=== PATIENT | male | born 1950 | race Caucasian/White ===

== ENCOUNTER 2021-05-11 12:56 | Outpatient (CLI) | payer OTHER, SELFPAY ==
--- NOTE | 2021-05-11 13:15 | CT_ITS ---
WS: [id number] CT CHEST WITHOUT INTRAVENOUS CONTRAST HISTORY: Lung Nodule TECHNIQUE: Contiguous 5 mm axial imaging performed on the thorax. Coronal and sagittal reformats are submitted. All CT scans at [facility] use at least one of these dose optimization techniques: automated exposure control; mA and/or kV adjustment per patient size (includes targeted exams where dose is matched to clinical indication); or iterative reconstruction. CONTRAST: None DLP: 623.8 mGy.cm COMPARISON: 09/04/2020 Lungs and central airway: Mild pulmonary hyperexpansion. Small bilateral perifissural nodule's. Calci fied granuloma periphery RIGHT lower lobe. Lungs are much better aerated as compared to the prior exa mination. No discrete mass or nodule. Pleura: Normal. No pleural effusion. Heart and pericardium: Normal size heart with no pericardial effusion. Mediastinum and crissy: No significant adenopathy identified on this unenhanced examination. Vessels: Normal size aorta with very mild atherosclerosis. Normal size pulmonary artery. Chest wall and lower neck: No soft tissue masses. Upper abdomen: Moderate size hiatal hernia. Hepatic steatosis. Normal adrenal glands. Osseous structures: No destructive osseous lesions. Remote healed rib fracture in the posterior RIGHT lower thorax. CT/CT chest wo con [id number] IMPRESSION: 1. Chronic emphysema with no suspicious pulmonary mass or nodule. 2. 9 perifissural nodule's. 3. No adenopathy. 4. Small hiatal hernia.
== END 2021-05-11 12:57 | disposition home or self-care (01) ==
LOC: CT 13:03
PROVIDERS: PCP Family Medicine; Visit Provider Internal Medicine Critical Care Medicine
DX: R91.1 Solitary pulmonary nodule (principal); J43.9 Emphysema, unspecified; K44.9 Diaphragmatic hernia without obstruction or gangrene
CPT/HCPCS: 71250

== ENCOUNTER → 2022-04-26 12:11 | Outpatient (BNVA) | payer OTHER, SELFPAY | PROVIDERS: PCP Family Medicine; Visit Provider Internal Medicine Critical Care Medicine | DX: R91.8 Other nonspecific abnormal finding of lung field (principal); R06.02 Shortness of breath; Z87.891 Personal history of nicotine dependence | CPT/HCPCS: 99213 ==

== ENCOUNTER 2024-01-16 10:39 | Outpatient (CLI) | payer OTHER, SELFPAY ==
--- NOTE | 2024-01-16 11:22 | PETR_ITS ---
PROCEDURE INFORMATION: Exam: PET/CT Skull Base to Mid-thigh Exam date and time: 01/16/2024 11:14 AM Age: 73 years old Clinical indication: Abnormal findings; Lung mass; Additional info: Abnormal imaging LABS AND CLINICAL REPORTS: Glucose: 94 mg/dl Treatment strategy for malignancy (PET staging): Initial Staging (PI) TECHNIQUE: Imaging protocol: Following at least four-hour fasting and following the injection of radiopharmaceutical, low dose CT images were obtained. Then, PET images were obtained. Attenuation corrected images were constructed using the CT scan. Fused images of PET and CT were reviewed. The standardized uptake values (SUV) reported below are maximum values within a region of interest, expressed in gm/ml. Exam includes orbital meatal line to mid-thigh. Radiopharmaceutical: 11.85 mCi F-18 FDG (Fluorodeoxyglucose), IV. Time of imaging post radiopharmaceutical administration: 1 hour Injection site: Left antecubital vein COMPARISON: CT chest 08/30/2021, 05/25/2021, 05/11/2021, 09/04/2020 FINDINGS: Brain: Visualized brain has normal physiologic uptake. Pharynx: No abnormal uptake. Larynx: No abnormal uptake. Lungs, pleura and trachea: No abnormal uptake. Small linear opacities medially inferiorly in the left lower lobe with maximal thickness of 1.5 cm on axial image 120 are not FDG avid suggestive of subsegmental atelectatic changes. No pleural effusion. Heart: Normal physiologic uptake.There is no cardiomegaly. Coronary artery calcification is present. There is no pericardial effusion. Mediastinal space: No abnormal uptake. There is a small hiatal hernia. Liver: No abnormal uptake. Gallbladder and bile ducts: No abnormal uptake. No calcified gallstones. Pancreas: No abnormal uptake. Spleen: No abnormal uptake. No splenomegaly. Adrenal glands: No abnormal uptake. No nodules. Kidneys and ureters: Normal physiologic uptake. No hydronephrosis. Stomach and bowel: No abnormal uptake. Vasculature: No abnormal uptake. Lymph nodes: Mildly increased uptake within bilateral hilar lymph nodes measuring 4 SUV on the left side and 3.1 SUV on the right side probably reflect benign reactive changes. There is no significant change in size of the hilar nodes in comparison with the last CT chest on 08/30/2021 where the are borderline prominent in size measuring up to 1.2 cm in the short axis. No FDG avid lymphadenopathy in the head, neck, abdomen, pelvis, and extremities. Skeleton: No abnormal uptake in the visualized axial and appendicular skeleton. Status post right shoulder replacement. Soft tissues: No abnormal uptake in the visualized head, neck, chest, abdomen, pelvis, and extremities. PET/PET skulltothi INITIAL [id number] IMPRESSION: No abnormal radiotracer uptake in the lungs. Subsegmental atelectatic changes in the left lower lobe. Mildly increased uptake in bilateral symmetric hilar lymph nodes with no change in size since 08/30/2021 likely represents benign inflammatory condition.
== END 2024-01-16 10:40 | disposition home or self-care (01) ==
LOC: RAD 10:39
PROVIDERS: PCP Family Medicine; Visit Provider Family Medicine
DX: R91.1 Solitary pulmonary nodule (principal); J98.11 Atelectasis; I25.84 Coronary atherosclerosis due to calcified coronary lesion; K44.9 Diaphragmatic hernia without obstruction or gangrene
CPT/HCPCS: 78815; A9552

== ENCOUNTER → 2025-05-22 12:50 | Outpatient (BNVA) | payer OTHER, SELFPAY | PROVIDERS: PCP Family Medicine; Visit Provider Nurse Practitioner Family | DX: L72.0 Epidermal cyst (principal); B07.8 Other viral warts; L57.8 Other skin changes due to chronic exposure to nonionizing radiation; L82.1 Other seborrheic keratosis; D18.01 Hemangioma of skin and subcutaneous tissue; D48.5 Neoplasm of uncertain behavior of skin; L57.0 Actinic keratosis | CPT/HCPCS: 11102; 17000; 69100; 99203 ==

== ENCOUNTER 2025-08-06 11:35 | Emergency (ER) | payer OTHER, SELFPAY ==
[2025-08-06 11:35] VITALS: BP 170/82; PULSE 107; RESP 30; TEMP 36.8; O2SAT 100
--- OUTSIDE RECORDS SUMMARY | 2025-08-06 11:39 | XMS_ITS | Clinical Summary ---
Author Organization [facility] Address [address] [place] [address] Phone Care Team Providers Care Rubber Block Layer Name Role Phone Blanca Enriquez MD Primary Care Provider +1- [phone] Allergies No known active allergies Medications cholecalciferol (Vitamin D-3) 25 mcg (1,000 unit) tablet Take 100 Units by mouth 1 (one) time each day. 12/06/2016 Active citalopram (CeleXA) 40 mg tablet Take 40 mg by mouth 1 (one) time each day in the morning. 07/14/2022 Active finasteride (Proscar) 5 mg tablet Take 5 mg by mouth 1 (one) time each day. 07/14/2022 Active pantoprazole (ProtoNix) 20 mg EC tablet Take 20 mg by mouth 1 (one) time each day before breakfast. 12/06/2016 Active simvastatin (Zocor) 40 mg tablet Take 20 mg by mouth every night. 12/06/2016 Active tamsulosin (Flomax) 0.4 mg 24 hr capsule Take 0.4 mg by mouth 1 (one) time each day. 07/14/2022 Active ferrous gluconate (Fergon) 324 mg (38 mg iron) tablet Take 324 mg by mouth 1 (one) time each day with breakfast. Active amLODIPine (Norvasc) 5 mg tablet Take 5 mg by mouth 1 (one) time each day. Active acetaminophen (Tylenol) 500 mg tablet Take 1,000 mg by mouth every 6 (six) hours if needed for mild pain (1-3). Active Active Problems Problem Noted Date Diagnosed Date PONV (postoperative nausea and vomiting) 023 Post-operative pain 12/15/2022 Primary osteoarthritis of right shoulder 023 Overview (11/24/2022): Added automatically from request for surgery [id number] Family History * Patient is adopted Medical History Relation Comments Anesthesia problems Neg Hx Social History Tobacco Use Types Packs/Day Years Used Date Smoking Tobacco: Former Cigarettes Tobacco Cessation:Counseling Given: Not Answered Alcohol Use Standard Drinks/Week Comments Never 0 (1 standard drink = 0.6 oz pur e alcohol) Humiliation, Afraid, Rape, and Kick questionnair e Answer Date Recorded Within the last year, have y ou been afraid of your partner or ex-partner? No 12/07/2022 Within the last year, have y ou been humiliated or emotionally abused in other ways by your partner or ex-partner? No Within the last year, have y ou been kicked, hit, slapped, or otherwise physically hurt by your partner or ex-partner? No 12/07/2022 Within the last year, have y ou been raped or forced to have any kind of sexual activity by your partner or ex-partner? No 12/07/2022 Social Connection and Isolation Panel Answer Date Recorded In a typical week, how many times do you talk on the phone with family, friends, or neighbors? Three times a week 12/07/2022 How often do you get togethe r with friends or relatives? Three times a week 12/07/2022 How often do you attend [facility] or zoroastrianism services? More than 4 times per year 12/07/2022 Do you belong to any clubs o r organizations such as christian groups, unions, fraternal or athletic groups, or school groups? No 12/07/2022 How often do you attend meet ings of the clubs or organizations you belong to? Never 12/07/2022 Are you , , di vorced, , never , or living with a partner? Patient declined 12/07/2022 AUDIT-C Answer Date Recorded Q1: How often do you have a drink containing alcohol? Never 12/07/2022 Q2: How many drinks containi ng alcohol do you have on a typical day when you are drinking? Patient does not drink Q3: How often do you have si x or more drinks on one occasion? Never 12/07/2022 Overall Financial Resource Strain (CARDIA) Answe r Date Recorded How hard is it for you to pa y for the very basics like food, housing, medical care, and heating? Not hard at all 12/07/2022 PHQ-2 Answer Date Recorded Patient Health Questionnaire-2 Score 0 12/20/2023 [facility] - Occupational Stress Questionnaire Answer Date Recorded Do you feel stress - tense, restless, nervous, or anxious, or unable to sleep at night because your mind is troubled all the time - these days? Not at all 12/07/2022 Exercise Vital Sign Answer Date Recorde d On average, how many days pe r week do you engage in moderate to strenuous exercise (like a brisk walk)? 5 days 12/07/2022 On average, how many minutes do you engage in exercise at this level? 20 min 12/07/2022 Hunger Vital Sign Answer Date Recorded Within the past 12 months, y ou worried that your food would run out before you got the money to buy more. Never true 12/08/19 Within the past 12 months, t he food you bought just didn't last and you didn't have money to get more. Never true 12/07/2022 PRAP[facility] - Transportation Answer Date Re corded In the past 12 months, has l ack of transportation kept you from medical appointments or from getting medications? No 10/2022 In the past 12 months, has l ack of transportation kept you from meetings, work, or from getting things needed for daily living? No 12/07/2022 Housing Stability Vital Sign Answer Terrance e Recorded In the last 12 months, was t here a time when you were not able to pay the mortgage or rent on time? No 12/07/2022 Number of Places Lived in the Last Year Not on f ile 12/07/2022 In the last 12 months, was t here a time when you did not have a steady place to sleep or slept in a longterm (including now)? No 12/07/2022 [facility] - Mental Health Answer Date Recorde d Little interest or pleasure in doing things Not at all 12/20/2023 Feeling down, depressed, or hopeless Not at all 12/20/2023 Feeling of Stress Not on file 12/20/2023 Sex and Gender Information Value Date Recorded Sex Assigned at Male 06/27/2023 11:33 AM INFORMATION LEAD Legal Sex Male 3:14 PM CDT Gender Identity Male 06/27/2023 11:33 AM INFORMATION LEAD Sexual Orientation Straight 06/27/2023 11 :33 AM INFORMATION LEAD Last Filed Vital Signs Vital Sign Reading Time Taken Comments Blood Pressure 177/68 12/20/2023 8:17 AM CDT Pulse 59 12/20/2023 8:17 AM CDT Temperature 35.9 C (96.7 F) 12/20/2023 8:17 AM CDT Respiratory Rate 11 06/27/2023 2:15 PM INFORMATION LEAD Oxygen Saturation 98% 12/20/2023 8:17 AM CDT Inhaled Oxygen Concentration - - Weight 78.3 kg (172 lb 9.6 oz) 12/20/2023 8:17 A M CDT Height 172.7 cm (5' 8 ) 12/20/2023 8:17 AM CDT Body Mass Index 26.24 12/20/2023 8:17 AM CDT Plan of Treatment Health Maintenance Due Date Last Done Comments Lipid Panel 1950 MMR Vaccines (1 of 1 - Stand jessica series) 1949 DTaP,Tdap,and Td Vaccines (1 - Tdap) 1955 Varicella Vaccines (1 of 2 - 13+ 2-dose series) 1961 Depression Screening 1966 Hepatitis C Screening 1966 Social Drivers of Health (SDoH) 1966 Pneumococcal Vaccines: 50+ Y ears (1 of 2 - PCV) 1967 Zoster Vaccines (1 of 2) 1998 Complete Fall Risk Assessment 2013 RSV Vaccines (1 - 1-dose 75+ series) 2023 Creatinine Level 12/17/2023 12/16/2022 Potassium Level 12/17/2023 12/16/2022 COVID-19 Vaccines (1 - 2024- season) 2025 Influenza Vaccine (#1) 2025 05/24/2004 HIB Vaccines Aged Out No longer eligi ble based on patient's age to complete this topic HPV Vaccines Aged Out No longer eligi ble based on patient's age to complete this topic Hepatitis A Vaccines Aged Out No long er eligible based on patient's age to complete this topic Hepatitis B Vaccines Aged Out No long er eligible based on patient's age to complete this topic IPV Vaccines Aged Out No longer eligi ble based on patient's age to complete this topic Meningococcal B Vaccine Aged Out No l onger eligible based on patient's age to complete this topic Meningococcal Vaccine Aged Out No valentine wil eligible based on patient's age to complete this topic Rotavirus Vaccines Aged Out No longer eligible based on patient's age to complete this topic Medical Devices Implanted Type Area Jig Boring Machine Operator For Metal Device Identifier Shelf Expiration Date Model / Serial / Lot Lens Simplicity Eyhance 19.0 - [id number] - [id number] Implanted:Qty: 1 on 06/13/2023 by Chandan Vaz Sr., MD at [facility] MOB Lenses Implant Right: Eye ZAHRA 10/24/2025 [id number] 90 / [id number] 12 / Lens Simplicity Eyhance 19.5 - [id number] - [id number] Implanted:Qty: 1 on 06/27/2023 by Chandan Vaz Sr., MD at [facility] MOB Lenses Implant Left: Eye ZAHRA 11/03/2025 [id number] / [id number] 13 / Screw Kit Eq Rev Ang Torque - [id number] - [id number] Implanted:Qty: 1 on 12/15/2022 by Rick Stoddard MD at [facility] Implant Right: Shoulder EXAI 06/08/2027 320-20-0 0 / [id number] / Description:PURCHASED ON PO# [id number] Humeral Eq Rev Tray Adapter +0 - [id number] - [id number] Implanted:Qty: 1 on 12/15/2022 by Rick Stoddard MD at [facility] Implant Right: Shoulder EXAI 09/28/2032 320-10-0 0 / [id number] / Description:PURCHASED ON PO# [id number] Eq Rev Lock Glenosphere Screw - [id number] - [id number] Implanted:Qty: 1 on 12/15/2022 by Rick Stoddard MD at [facility] Implant Right: Shoulder EXAI 09/26/2027 320-15-0 5 / [id number] / Description:PURCHASED ON PO# [id number] Eq Plate Rev Glenoid - [id number] - [id number] Implanted:Qty: 1 on 12/15/2022 by Rick Stoddard MD at [facility] Implant Right: Shoulder EXAI 09/13/2032 320-15-0 1 / [id number] / Description:PURCHASED ON PO# [id number] Humeral Stem 11mm - [id number] - [id number] Implanted:Qty: 1 on 12/15/2022 by Rick Stoddard MD at [facility] Implant Right: Shoulder EXAI 10/03/2032 300-01-1 1 / [id number] / Description:PURCHASED ON PO# [id number] Screw Eq Rev Comp Lock 4.5x30 - [id number] - [id number] Implanted:Qty: 1 on 12/15/2022 by Rick Stoddard MD at [facility] Implant Right: Shoulder EXAI 09/26/2027 320-20-3 0 / [id number] / Description:PURCHASED ON PO# 165526 Screw Eq Rev Comp Lock 4.5x30 - [id number] - [id number] Implanted:Qty: 1 on 12/15/2022 by Rick Stoddard MD at [facility] Implant Right: Shoulder EXAI 09/26/2027 320-20-3 0 / [id number] / Description:PURCHASED ON PO# 895474 Screw Eq Rev Comp Lock 4.5x26 - [id number] - [id number] Implanted:Qty: 1 on 12/15/2022 by Rick Stoddard MD at [facility] Implant Right: Shoulder EXAI 10/09/2027 320-20-2 6 / [id number] / Description:PURCHASED ON PO# [id number] Eq Rev Glenosphere 38mm - [id number] - [id number] Implanted:Qty: 1 on 12/15/2022 by Rick Stoddard MD at [facility] Implant Right: Shoulder EXAI 06/12/2032 320-06-3 8 / [id number] / Description:PURCHASED ON PO# [id number] Liner Equ Rev 38mm Hum +2.5 - [id number] - [id number] Implanted:Qty: 1 on 12/15/2022 by Rick Stoddard MD at [facility] Implant Right: Shoulder EXAI 09/08/2026 320-38-0 3 / [id number] / Description:PURCHASED ON PO# [id number] Procedures Procedure Name Priority Date/Time Associated Diagnosis Comments COMPREHENSIVE METABOLIC PANEL Pending Discharge 12/16/2022 2:34 PM CDT from Last 3 Months or Most Recently Relevant to Health Maintenance Results * (ABNORMAL) Comprehensive Metabolic Panel (12/16/2022 2:34 PM CDT) Glucose 127(H) 70 - 100 mg/dL LAB CHEMISTRY METHOD 12/16/2022 3:07 PM CDT [facility] BUN 44(H) 9 - 20 mg/dL LAB CHEMISTRY METHOD 12/16/2022 3:07 PM CDT [facility] Creatinine 1.00 0.66 - 1.25 mg/dl LAB CHEMISTRY METHOD 12/16/2022 3:07 PM CDT [facility] BUN/Creatinine Ratio 44(H) 12 - 17 LAB CHEMISTRY METHOD 12/16/2022 3:07 PM CDT [facility] Sodium 133(L) 135 - 145 mmol/L LAB CHEMISTRY METHOD 12/16/2022 3:07 PM CDT [facility] Potassium 3.8 3.6 - 5.0 mmol/L LAB CHEMISTRY METHOD 12/16/2022 3:07 PM CDT [facility] Chloride 101 101 - 111 mmol/L LAB CHEMISTRY METHOD 12/16/2022 3:07 PM CDT [facility] Total Carbon Dioxide 29 22 - 30 mmol/L LAB CHEMISTRY METHOD 12/16/2022 3:07 PM CDT [facility] Anion Gap 7(L) 9 - 17 mmol/L LAB CHEMISTRY METHOD 12/16/2022 3:07 PM CDT [facility] Calcium 7.9(L) 8.2 - 10.2 mg/dL LAB CHEMISTRY METHOD 12/16/2022 3:07 PM CDT [facility] Total Protein, Serum 5.3(L) 5.6 - 8.5 g/dL LAB CHEMISTRY METHOD 12/16/2022 3:07 PM CDT [facility] Albumin 2.6(L) 3.5 - 5.2 g/dL LAB CHEMISTRY METHOD 12/16/2022 3:07 PM CDT [facility] GLOBULIN 2.7 2.1 - 3.8 g/dL LAB CHEMISTRY METHOD 12/16/2022 3:07 PM CDT [facility] A/G Ratio 1.0(L) 1.4 - 1.7 LAB CHEMISTRY METHOD 12/16/2022 3:07 PM CDT [facility] Bilirubin, Total 0.5 0.1 - 1.3 mg/dL LAB CHEMISTRY METHOD 12/16/2022 3:07 PM CDT [facility] Alkaline Phosphatase 71 45 - 117 U/L LAB CHEMISTRY METHOD 12/16/2022 3:07 PM CDT [facility] ALT (SGPT) 17 11 - 58 U/L LAB CHEMISTRY METHOD 12/16/2022 3:07 PM CDT [facility] AST (SGOT) 16 9 - 55 U/L LAB CHEMISTRY METHOD 12/16/2022 3:07 PM CDT [facility] eGFR >60 >=60 LAB CHEMISTRY METHOD 12/16/2022 3:07 PM CDT [facility] Blood Venous blood specimen / Unknown Venipuncture / Unknown 12/16/2022 2:34 PM CDT 12/16/2022 2:39 PM CDT us Hayden [place] DO LAB BLOOD ORDERABLES Final Resu lt Performing Organization Address City/State/[facility] Co de Phone Number [facility] [address] [address] from Last 3 Months or Most Recently Relevant to Health Maintenance [place] [address] [address] [place] [address] [employer] Advance Directives For more information, please contact: [phone] (7:30 AM - 5PM [facility], 7 days a week) Documents on File Type Date Recorded Patient Medical Data Analyst Expl anation Advance Directives and Living Will 12/19/2022 1:55 PM Advance Directives and Living Will 12/15/2022 Advance Directives a nd Living Will * Full Code (Latest Code Status on File) Date Activated Date Inactivated Comments 06/27/2023 11:32 AM 06/27/2023 4:42 PM * Full Code Date Activated Date Inactivated Comments 06/13/2023 7:19 AM 06/13/2023 12:44 PM * Full Code Date Activated Date Inactivated Comments 12/15/2022 7:12 AM 12/17/2022 2:15 PM Care Teams Rubber Block Layer Relationship Specialty Start Date End Date Blanca Enriquez MD [address] [place] [address] PCP - General Family Medicine 03/21/23
--- OUTSIDE RECORDS SUMMARY | 2025-08-06 11:39 | XMS_ITS | Clinical Summary ---
Author Organization [facility] Address [address] Campos: Epic Prelude ADT ALECIA WISE [address] Care Team Providers Care Ux Visual Designer Name Role Phone Blanca Enriquez MD Primary Care Provider +1- [phone] Allergies No known active allergies Medications PEG-Electrolyte Soln (NULYTELY) 420 g Recon Soln Mix per instructions, drink 1/2 evening prior to procedure & 1/2 morning of procedure.Must be completed 2 hours before procedure. 4,000 mL 0 8 Active sildenafiL (VIAGRA) 50 mg tabletIndication s:Erectile dysfunction, unspecified erectile dysfunction type Take 1 Tablet (50 mg) by mouth 1 time daily as needed for Erectile Dysfunction. 10 Tablet 1 8 Active cholecalciferol, vitamin D3, 1,000 unit Take 3,000 Units by mouth daily . 7 Active naproxen (NAPROSYN) 500 mg tablet Take 500 mg by mouth 2 times daily as needed for Pain, Moderate. 7 Active pantoprazole (PROTONIX) 20 mg Tablet, Delayed Release (E.C.) Take 20 mg by mouth daily. 7 Active simvastatin (ZOCOR) 40 mg tablet Take 20 mg by mouth late in the day Take 0.5 tablet daily . 7 Active acetaminophen (TYLENOL) 500 mg tablet Take 1,000 mg by mouth every 6 hours as needed. Active amLODIPine (NORVASC) 10 mg tablet Take 10 mg by mouth. 4 Active ferrous gluconate 324 mg (38 mg iron) tablet Take 324 mg by mouth daily with breakfast. 4 Active citalopram (CeleXA) 40 mg tablet Take 20 mg by mouth. 2 Active finasteride (PROSCAR) 5 mg tablet Take 5 mg by mouth. 2 Active meloxicam (MOBIC) 7.5 mg tablet Take 7.5 mg by mouth. 3 Active traZODone (DESYREL) 100 mg tablet Take 50 mg by mouth. 4 Active Active Problems Problem Noted Date Diagnosed Date Pulmonary nodule 01/22/2024 Chest pain 01/22/2024 Shortness of breath 01/22/2024 Overweight (BMI 25.0-29.9) 01/01/2018 Erectile dysfunction 01/01/2018 Essential hypertension 01/01/2018 Hyperlipidemia 12/06/2016 Gastroesophageal reflux disease 12/06/2016 Screening for colon cancer 12/06/2016 History of major depression 12/06/2016 Anxiety 12/06/2016 Resolved Problems Problem Noted Date Diagnosed Date Resolved Date Chronic right shoulder pain 12/06/2016 01/01/2018 Blackout spell 12/06/2016 12/08/2017 Family History Relation Name Status Comments Brother Alive Father Alive Mother Alive Sister Alive Social History Tobacco Use Types Packs/Day Years Used Date Smoking Tobacco: Former Cigarettes Tobacco Cessation:Counseling Given: Not Answered Comments:Pt smoked for about 9 years --- 14 years to 23 years in those years the most packs of cigarettes was 2 packs in a day Alcohol Use Standard Drinks/Week Comments No 0 (1 standard drink = 0.6 oz pur e alcohol) Sex and Gender Information Value Date Recorded Sex Assigned at Not on file 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 Gender Identity Not on file Sexual Orientation Not on file Last Filed Vital Signs Vital Sign Reading Time Taken Comments Blood Pressure 160/62 01/22/2024 8:57 AM CDT Pulse 66 01/22/2024 8:57 AM CDT Temperature 36.3 C (97.4 F) 03/19/2018 8:40 AM CDT Respiratory Rate 18 03/19/2018 8:40 AM CDT Oxygen Saturation 96% 01/22/2024 8:57 AM CDT Inhaled Oxygen Concentration - - Weight 78.5 kg (173 lb) 01/22/2024 8:57 AM CDT Height 172.7 cm (5' 8 ) 01/22/2024 8:57 AM CDT Body Mass Index 26.3 01/22/2024 8:57 AM CDT Plan of Treatment Health Maintenance Due Date Last Done Comments DTAP/TDAP/TD VACCINES (1 - Tdap) 1967 PNEUMOCOCCAL VACCINE 50+ YEARS (1 of 2 - PCV) 09/23/18 68 ZOSTER VACCINE (1 of 2) 1998 RSV VACCINE (60+ or ) (1 - 1-dose 75+ series) 2023 INFLUENZA VACCINE (#1) 2025 Care Teams Ux Visual Designer Relationship Specialty Start Date End Date Blanca Enriquez MD [address] [place] [id number] PCP - General Family Practice 12/06/16
--- OUTSIDE RECORDS SUMMARY | 2025-08-06 11:39 | XMS_ITS | Encounter Summary ---
Author Organization [facility] Address [address] [address] Phone Care Team Providers Care Assistant Laboratory Director Name Role Phone Chung Price Primary Care Provider [phone] Blanca Enriquez MD Primary Care Provider [phone] Encounter Details Date Type Department Care Team (Late st Contact Info) Description 12/05/2022 Telephone [facility] [address] [address] Sarah Roberson [address] [address] Social History Tobacco Use Types Packs/Day Years Used Date Smoking Tobacco: Former Cigarettes Alcohol Use Standard Drinks/Week Comments Never 0 [...] week 12/07/2022 How often do you attend chur or sabianist services? More than 4 times per year 12/07/2022 Do you belong to any clubs o r organizations such as latter day groups, unions, fraternal or athletic groups, or [...] Date Recorded Patient Health Questionnaire-2 Score 0 11/23/2022 [facility] - Occupational Stress Questionnaire Answer Date Recorded [...] money to buy more. Never true 12/08/19 23 Within the past 12 months, t he [...] place to sleep or slept in a usp (including now)? No 12/07/2022 Sex and Gender Information Value Date Recorded Sex Assigned at Male 06/27/2023 11:33 AM STAFF NURSE ICU RESOURCE TEAM Legal Sex Male 3:14 PM CDT Gender Identity Male 06/27/2023 11:33 AM STAFF NURSE ICU RESOURCE TEAM Sexual Orientation Straight 06/27/2023 11 :33 AM STAFF NURSE ICU RESOURCE TEAM COVID-19 Exposure Response Date Recorded In the last 10 days, have yo u been in contact with someone who was confirmed or suspected to have Coronavirus/COVID-19? No / Unsure 12/07/2022 11:47 AM CDT documented as of this encounter Plan of Treatment Not on file documented as of this encounter Visit Diagnoses Not on filedocumented in this encounter Care Teams Assistant Laboratory Director Relationship Specialty Start Date End Date Chung Price [address] [place] [address] PCP - General 11/22/22 12/14/22 Blanca Enriquez MD [address] [place] [address] PCP - General Family Medicine 03/21/23 documented as of this encounter
--- OUTSIDE RECORDS SUMMARY | 2025-08-06 11:39 | XMS_ITS | Clinical Summary ---
Author Organization [facility] [address] [facility] Address [address] [facility] [place] [address] Care Team Providers Care Manager Maintenance Name Role Phone Blanca Enriquez MD Primary Care Provider [phone] Allergies No known active allergies Medications cholecalciferol, vitamin D3, 1,000 unit Take 3,000 Units by mouth daily . Active naproxen (NAPROSYN) 500 mg tablet Take 500 mg by mouth 2 times daily as needed for Pain, Moderate. Active pantoprazole (PROTONIX) 20 mg Tablet, Delayed Release (E.C.) Take 20 mg by mouth daily. Active simvastatin (ZOCOR) 40 mg tablet Take 20 mg by mouth late in the day Take 0.5 tablet daily . Active sildenafil (VIAGRA) 50 mg tabletIndication s:Erectile dysfunction, unspecified erectile dysfunction type Take 1 Tablet (50 mg) by mouth 1 time daily as needed for Erectile Dysfunction. 10 Tablet 1 8 Active PEG-Electrolyte Soln (NULYTELY) 420 g Recon Soln Mix per instructions, drink 1/2 evening prior to procedure & 1/2 morning of procedure.Must be completed 2 hours before procedure. 4000 mL 8 Active Active Problems Problem Noted Date Diagnosed Date Essential hypertension 01/01/2018 Overweight (BMI 25.0-29.9) 01/01/2018 Erectile dysfunction 01/01/2018 Hyperlipidemia 12/06/2016 Gastroesophageal reflux disease 12/06/2016 History of major depression 12/06/2016 Anxiety 12/06/2016 Screening for colon cancer 12/06/2016 Resolved Problems Problem Noted Date Diagnosed Date Resolved Date Chronic right shoulder pain 12/06/2016 01/01/2018 Blackout spell 12/06/2016 12/08/2017 Family History Relation Name Status Comments Brother Alive Father Alive Mother Alive Sister Alive Social History Tobacco Use Types Packs/Day Years Used Date Smoking Tobacco: Former Alcohol Use Standard Drinks/Week Comments No 0 (1 standard drink = 0.6 oz pur e alcohol) Sex and Gender Information Value Date Recorded Sex Assigned at Not on file 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 Gender Identity Not on file Sexual Orientation Not on file Last Filed Vital Signs Vital Sign Reading Time Taken Comments Blood Pressure 130/80 03/19/2018 8:40 AM CDT Pulse 83 03/19/2018 8:40 AM CDT Temperature 36.3 C (97.4 F) 03/19/2018 8:40 AM CDT Respiratory Rate 18 03/19/2018 8:40 AM CDT Oxygen Saturation 96% 03/19/2018 8:40 AM CDT Inhaled Oxygen Concentration - - Weight 79.8 kg (176 lb) 03/19/2018 8:40 AM CDT Height 172.7 cm (5' 8 ) 03/19/2018 8:40 AM CDT Body Mass Index 26.76 03/19/2018 8:40 AM CDT Plan of Treatment Health Maintenance Due Date Last Done Comments DTAP/TDAP/TD VACCINES (1 - Tdap) 1967 PNEUMOCOCCAL VACCINE 50+ YEARS (1 of 1 - PCV) 09/23/18 99 ZOSTER VACCINE (1 of 2) 1998 RSV VACCINE (60+ or ) (1 - 1-dose 75+ series) 2023 INFLUENZA VACCINE (#1) 2025 Insurance MEDICARE PART A AND B Care Teams Manager Maintenance Relationship Specialty Start Date End Date Blanca Enriquez MD PCP - General Family Practice 12/06/16
--- NOTE | 2025-08-06 11:52 | CT_ITS ---
WS: [id number] CT HEAD TECHNIQUE: Noncontrast CT of the head obtained from the skullbase to the vertex. CLINICAL INFORMATION: ams COMPARISON: None. DLP: 1038.[address] scans at [facility] use at least one of these dose optimization techniques: automated exposure control; mA and/or kV adjustment per patient size (includes targeted exams where dose is matched to clinical indication); or iterative reconstruction. FINDINGS: No evidence of intracranial hemorrhage or mass effect. Ventricular system and basal cisterns are patent. Moderate small vessel changes with moderate parenchymal volume loss. No extra-axial fluid collections. No evidence of mass or mass effect. Vascular calcification. Paranasal sinuses and mastoid air cells are well aerated. .Normal visualized soft tissues. CT/CT head wo con* [id number] IMPRESSION: 1. No evidence of intracranial hemorrhage or mass effect. 2. No acute intracranial findings.
--- NOTE | 2025-08-06 11:52 | XR_ITS ---
WS: [id number] Portable AP upright chest, 08/06/2025 Clinical Data: ams Comparison: Two-view chest, 07/23/2020 Findings: No nodules, masses or effusions are seen. The heart is normal. The pulmonary vascularity is not increased. No pneumonia or pneumothorax is seen. The aortic arch and descending thoracic aorta show tortuosity. There is a hiatal hernia behind the heart. There is a right reverse shoulder arthroplasty. XR/XR chest 1V portable [id number] Impression: Atherosclerosis.
--- NOTE | 2025-08-06 11:53 | ECG_ITS ---
[facility] 2025-[facility]06 Pat Name: Samson Alvarado Department: Room: Gender: Male Gm Video: : 1950 Requested By: Aviva Poe Order Number: [id number] Perera MD: Kieran Mc M.D. Measurements Intervals [place] Rate: 84 P: 17 FL: 157 QRS: -4 QRSD: 122 T: 7 QT: 395 QTc: 469 Interpretive Statements SINUS RHYTHM RIGHT BUNDLE BRANCH BLOCK [120+ ms QRS DURATION, UPRIGHT V1, 40+ ms S IN I/aVL/V4/V5/V6] Compared to ECG 07/10/2019 12:37:17 Right bundle-branch block now present Electronically Signed On 08-06-2025 18:53:01 BURR SANDER by Kieran Mc M.D. [id number] [id number]
[2025-08-06 12:14] LABS: Hematocrit 42.0 % (37-53); Hemoglobin 14.40 g/dL (11.27-16.99); Mean Corpuscular HGB Conc 34.3 g/dL (30-55); Mean Corpuscular Hemoglobin 29.0 pg (27-33); Mean Corpuscular Volume 84.5 fl (82-101); Nucleated Red Blood Cells % 0 %; Platelet Count 453 10^3/cmm (157-399); Red Blood Count 4.97 10^6/uL (3.85-5.65); White Blood Count 11.72 10^3/uL (3.29-11.43)
[2025-08-06] MEDS: LORazepam 2 mg/mL INJ 1 mL 1 MG IVP (12:20)
--- NOTE | 2025-08-06 12:21 | W.ED.NEUROSD ---
HPI - Neuro Symptoms/Deficit General: Chief Complaint: Neuro Symptoms/Deficit Stated Complaint: AMS, Syncope Time Seen by Provider: 08/06/25 11:35 Source: patient and EMS Mode of arrival: EMS Limitations: no limitations History of Present Illness: 74-year-old male is here with a tremor. He states he gets a tremor at times with this 1 has been severe and he does have a full body tremor at this time. He had no seizure-like activity denies any headache or chest pain. States he had been recently admitted for a viral pneumonia has had some mild dyspnea denies any fevers has had a continuing cough. Related Data Home Medications ?Medication ?Instructions ?Recorded ?Confirmed cholecalciferol (vitamin D3) 25 75 mcg PO DAILY 09/22/20 08/06/25 mcg (1,000 unit) capsule ferrous gluconate 324 mg (37.5 mg 324 mg PO DAILY 09/22/20 08/06/25 iron) tablet finasteride 5 mg tablet 5 mg PO DAILY 09/22/20 08/06/25 pantoprazole 20 mg tablet,delayed 20 mg PO QAM 09/22/20 08/06/25 release sertraline 100 mg tablet 100 mg PO QAM 09/22/20 08/06/25 simvastatin 40 mg tablet 20 mg PO QPM 09/22/20 08/06/25 tamsulosin 0.4 mg capsule 0.4 mg PO QPM 09/22/20 08/06/25 trazodone 100 mg tablet 50 mg PO BEDTIME PRN Sleep 09/22/20 08/06/25 amlodipine 10 mg tablet 10 mg PO DAILY 08/06/25 08/06/25 meloxicam 7.5 mg tablet 7.5 mg PO DAILY 08/06/25 08/06/25 Allergies Allergy/AdvReac Type Severity Reaction Status Date / Time No Known Allergies Allergy Verified 08/06/25 11:41 [facility] ED PFSH: Medical History (Updated 08/06/25 @ 13:32 by Aviva Poe MD) Depression with anxiety Hyperlipidemia GERD (gastroesophageal reflux disease) HTN (hypertension) BPH w urinary obs/LUTS Enlarged prostate Surgical History Hx of tonsillectomy Family History Sister CAD (coronary artery disease) Brother CAD (coronary artery disease) Social History Smoking and tobacco/nicotine status: former use of tobacco/nicotine Quit status (tobacco/nicotine): has quit using Year quit tobacco: Age 33 - 3PPD x 20 Years Second hand smoke exposure: Yes Alcohol intake: former Substance/Drug Use: never Adopted: No Caregiver/support person: No Lives independently: Yes Household members: none Marital status: Single service: Yes Current occupational status: retired Do you think of yourself as: Straight/Heterosexual Current gender identity: Male Physical Exam Const: COMMON NORMALS: patient oriented x3 HENMT: COMMON NORMALS: normocephalic and atraumatic HEAD & SCALP: normocephalic and atraumatic Eye: COMMON NORMALS: Equal, round and reactive pupils present and EOMs intact bilaterally PUPIL: Yes Equal, round and reactive pupils present Neck/C-Spine: COMMON NORMALS: full ROM and supple Chest: COMMONS NORMALS: normal inspection of the chest and normal palpation of entire chest wall Resp: COMMON NORMALS: normal respiratory effort, No retractions, No use of accessory muscles and clear to auscultation bilaterally AUSCULTATION: clear to auscultation bilaterally Cardio: COMMON NORMALS: regular rate, regular rhythm and No murmurs present (Cardio) RATE: regular rate RHYTHM: regular rhythm GI: COMMON NORMALS: Normal to inspection, nondistended, normoactive bowel sounds present, Soft to palpation, non-tender and no masses PALPATION: Yes Soft to palpation Extremity: COMMON NORMALS: normal to inspection and full ROM Neuro: COMMON NORMALS: patient oriented x3, moves all extremities and no focal motor deficits Psych: COMMON NORMALS: mental status grossly normal, Normal thought process present and cooperative THOUGHT PROCESS: Normal thought process present Skin: COMMON NORMALS: no rashes or lesions noted and no wounds GENERAL SKIN EXAM: no rashes or lesions noted Course Vital Signs: Vital signs: Vital Signs Temperature 98.3 F 08/06/25 11:35 Pulse Rate 83 08/06/25 13:51 Respiratory Rate 14 08/06/25 13:51 Blood Pressure 138/69 08/06/25 13:51 Pulse Oximetry 96 08/06/25 13:51 Oxygen Delivery Me thod Room Air 08/06/25 11:35 MDM - Neuro Symptoms/Deficit Medical Decision Making Patient presents here with tremor. Head CT here is normal no signs of stroke or hemorrhage she has no signs of seizure-like activity labs here showed no significant abnormality besides a slight dehydration did give him IV fluids gave him Ativan as well his tremors did completely stop he states he feels much improved he has no signs of acute infection he is stable for discharge follow-up with PCP return if worsening he understands agrees to plan EKG interpreted by me at 1312 normal sinus rhythm heart rate [address] elevation QRS 122 QTc 436 Medical Records I reviewed the patient's medical records. Lab Data I reviewed the patient's lab results. 08/06/25 12:02 08/06/25 12:02 Radiology Impressions Chest X-Ray 08/06/25 11:52 Impression: Atherosclerosis. Head CT 08/06/25 11:52 IMPRESSION: 1. No evidence of intracranial hemorrhage or mass effect. 2. No acute intracranial findings. Laboratory Results WBC 11.72 10^3/uL (3.29-11.43) H 08/06/25 12:02 RBC 4.97 10^6/uL (3.85-5.65) 08/06/25 12:02 Hgb 14.40 g/dL (11.27-16.99) 08/06/25 12:02 Hct 42.0 % (37-53) 08/06/25 12:02 MCV 84.5 fl (82-101) 08/06/25 12:02 MCH 29.0 pg (27-33) 08/06/25 12:02 MCHC 34.3 g/dL (30-55) 08/06/25 12:02 RDW 12.6 % (12.1-15.1) 08/06/25 12:02 Plt Count 453 10^3/cmm (157-399) H 08/06/25 12:02 MPV 9.1 fL (7.4-10.4) 08/06/25 12:02 Neut % (Auto) 69.3 % 08/06/25 12:02 Lymph % (Auto) 20.3 % 08/06/25 12:02 Callahan % (Auto) 7.9 % 08/06/25 12:02 Eos % (Auto) 0.9 % 08/06/25 12:02 Baso % (Auto) 0.9 % 08/06/25 12:02 Neut # (Auto) 8.12 10^3/uL (1.8-7.7) H 08/06/25 12:02 Lymph # (Auto) 2.4 10^3/uL (0.8-4.8) 08/06/25 12:02 Callahan # (Auto) 0.9 10^3/uL (0.2-0.9) 08/06/25 12:02 Eos # (Auto) 0.1 10^3/uL (0.0-0.8) 08/06/25 12:02 Baso # (Auto) 0.1 10^3/uL (0.0-0.1) 08/06/25 12:02 Nucleated RBC % (auto) 0 % 08/06/25 12:02 Nucleated RBCs # 0.0 /100WBC 08/06/25 12:02 Sodium 138 mmol/L (136-145) 08/06/25 12:02 Potassium 3.5 mmol/L (3.5-5.1) 08/06/25 12:02 Chloride 100 mmol/L (98-107) 08/06/25 12:02 Carbon Dioxide 18 mmol/L (22-29) L 08/06/25 12:02 Anion Gap 23.5 (5-19) H 08/06/25 12:02 BUN 16 mg/dL (8-23) 08/06/25 12:02 Creatinine 1.4 mg/dL (0.7-1.2) H 08/06/25 12:02 GFR Calculation Not Reportable 08/06/25 12:02 Glucose 119 mg/dL (65-115) H 08/06/25 12:02 Calculated Osmolality 288 mOsm/kg (285-295) 08/06/25 12:02 Calcium 9.4 mg/dL (8.5-10.5) 08/06/25 12:02 Total Bilirubin 0.8 mg/dL (0.15-1.2) 08/06/25 12:02 AST 20 U/L (0-40) 08/06/25 12:02 ALT 18 U/L (0-41) 08/06/25 12:02 Alkaline Phosphatase 121 U/L (40-130) 08/06/25 12:02 Total Protein 7.4 g/dL (6.6-8.7) 08/06/25 12:02 Albumin 4.4 g/dL (3.5-5.2) 08/06/25 12:02 Globulin 3.0 g/dL (1.3-4.6) 08/06/25 12:02 TSH 2.89 uIU/mL (0.27-4.20) 08/06/25 12:02 All radiology interpretation(s) finalized by discharge Discharge Plan Discharge Patient Disposition: Home Clinical Impression: Tremor Condition: Stable Prescriptions: No Action cholecalciferol (vitamin D3) 25 mcg (1,000 unit) capsule 75 mcg PO DAILY finasteride 5 mg tablet 5 mg PO DAILY pantoprazole 20 mg tablet,delayed release (DR/EC) 20 mg PO QAM tamsulosin 0.4 mg capsule 0.4 mg PO QPM trazodone 100 mg tablet 50 mg PO BEDTIME PRN (Reason: Sleep) sertraline 100 mg tablet 100 mg PO QAM ferrous gluconate 324 mg (37.5 mg iron) tablet 324 mg PO DAILY simvastatin 40 mg tablet 20 mg PO QPM meloxicam 7.5 mg Tablet 7.5 mg PO DAILY amlodipine 10 mg Tablet 10 mg PO DAILY Discharge Orders: Discharge ED (Routine); Ordered 08/06/25 Ordered By: Aviva Poe Referrals: Rae Marino MD [Primary Care Provider, Family Practice] - 4-7 days Discharge Diet: Advance as tolerated Discharge Activity: Resume usual activity Patient Instructions: Tremors (ED) Print Language: Turkmen Coding Level of Care Code ED Mainframe Software Developer for Milton Krishnamurthy
--- NOTE | 2025-08-06 12:21 | PC.PHAR ---
Addendum entered by Jazlyn Jones 08/06/25 13:27: [facility]: [facility] 08/06/25 12:20pm
[2025-08-06 12:34] LABS: Alanine Aminotransferase 18 U/L (0-41); Albumin Level 4.4 g/dL (3.5-5.2); Alkaline Phosphatase 121 U/L (40-130); Anion Gap 23.5 (5-19); Aspartate Amino Transferase 20 U/L (0-40); Blood Urea Nitrogen 16 mg/dL (8-23); Calcium 9.4 mg/dL (8.5-10.5); Carbon Dioxide 18 mmol/L (22-29); Chloride 100 mmol/L (98-107); Globulin 3.0 g/dL (1.3-4.6); Glucose 119 mg/dL (65-115); Osmolality Calculated 288 mOsm/kg (285-295); Potassium 3.5 mmol/L (3.5-5.1); Sodium 138 mmol/L (136-145); Thyroid Stimulating Hormone 2.89 uIU/mL (0.27-4.20); Total Protein 7.4 g/dL (6.6-8.7)
[2025-08-06 12:46] VITALS: BP 147/89; PULSE 89; O2SAT 100
[2025-08-06 13:51] VITALS: BP 138/69; PULSE 83; RESP 14; O2SAT 96
== END 2025-08-06 13:52 | disposition home or self-care (01) ==
PROVIDERS: Emergency Provider Emergency Medicine; PCP Family Medicine
DX: R25.1 Tremor, unspecified (principal); Z87.891 Personal history of nicotine dependence; E78.5 Hyperlipidemia, unspecified; I10 Essential (primary) hypertension
CPT/HCPCS: 36415; 70450; 71045; 80053; 84443; 85025; 93005; 96374; 99285; J2060; J7030